=== PATIENT | female | born 1960 | race Caucasian/White ===

== ENCOUNTER 2021-09-10 16:54 | Emergency (ER) | payer SELFPAY ==
[~2021-09-10] VITALS: Ht 165.1 cm; Wt 75.7 kg
[2021-09-10 20:37] VITALS: BP 156/79
[2021-09-10] MEDS ORDERED: TETANUS-DIPTH-ACEL PERTUSSIS 0.5ML SYR Tdap IM ONE (21:15)
== END 2021-09-10 22:09 | disposition home or self-care (01) ==
LOC: ER 16:54
DX: S01.01XA Laceration without foreign body of scalp, initial encounter (principal); W22.8XXA Striking against or struck by other objects, initial encounter; Y93.89 Activity, other specified; Y92.89 Other specified places as the place of occurrence of the external cause; Y99.8 Other external cause status
CPT/HCPCS: 90471; 90715